=== PATIENT | female | born 1970 | race Caucasian/White ===

== ENCOUNTER 2020-01-14 07:20 | Inpatient (IN) | payer OTHER ==
[2020-01-14 08:16] VITALS: BMI 27.1
[2020-01-14] MEDS ORDERED: CITRIC ACID/SODIUM CITRATE 30 ML UNIT-DOSE CUP PO ONE (08:27)
[2020-01-14] MEDS ORDERED: ELECTROLYTE-148 SOLN 1,000 ML IV SCH (08:30)
[2020-01-14] MEDS ORDERED: morphine SULFATE/PF 0.5 MG/ML (2cc Syringe - QUVA) ONE (09:21)
--- NOTE | 2020-01-14 09:25 | HP ---
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: Alzheimer's, CVA, Dementia, Migraine, Multiple Sclerosis, Peripheral Neuropathy, Parkinson's, Seizure, Syncope, TIA, Vertigo, Other Hepatobiliary: Yes: Hepatitis B ...: Yes (39w1d gestation conceived with IVF.) ...: 3 (Recurrent loss) ...Para: 0 Endocrine: Yes: Other (Gestational diabetes- diet controlled) - Smoking History Smoking history: Never smoked Have you smoked in the past 12 months: No - Alcohol/Substance Use Hx Alcohol Use: No - Social History History of Recent Travel: No Home Medications - Allergies Allergies/Adverse Reactions: Allergies Allergy/AdvReac Type Severity Reaction Status Date / Time No Known Allergies Allergy Verified 01/14/20 08:15 - Home Medications Home Medications: Ambulatory Orders Aspirin 81 mg PO DAILY 01/14/20 Levothyroxine [Synthroid -] 25 mcg PO DAILY 01/14/20 No115/Iron/Folic Acid [ 19 Chewable Tablet] 1 each PO DAILY 01/14/20 Physical Examination Vital Signs: Vital Signs Temperature 98.9 F 01/14/20 08:03 Pulse Rate 90 01/14/20 08:03 Respiratory Rate 20 01/14/20 08:03 Blood Pressure 123/78 01/14/20 08:03 O2 Sat by Pulse Oximetry (%) Constitutional: Yes: Well Nourished, No Distress, Calm Eyes: Yes: Conjunctiva Clear, EOM Intact HENT: Yes: Atraumatic, Normocephalic Neck: Yes: Supple Cardiovascular: Yes: Regular Rate and Rhythm Respiratory: Yes: WNL, Regular Gastrointestinal: Yes: Other (gravid uterus) Renal/: Yes: WNL Musculoskeletal: Yes: WNL Extremities: Yes: WNL Edema: No Problem List - Problems (1) Advanced maternal age (AMA), 40 years or greater Code(s): LBF9130 -
[2020-01-14] MEDS ORDERED: ceFAZolin 2 GRAM PREMIX BAG IVPB ONE (10:15)
[2020-01-14] MEDS ORDERED: EPHEDRINE SULFATE/0.9% NACL/PF 50 MG/10 ML SYRINGE NR ONE (10:37)
[2020-01-14] MEDS ORDERED: LIDOCAINE HCL 1%, 10 MG/ML (20ML VIAL) ONE (10:55)
[2020-01-14] MEDS ORDERED: LIDOCAINE HCL 1%, 10 MG/ML (20ML VIAL) NR ONE (11:00)
[2020-01-14] MEDS ORDERED: morphine SULFATE/PF 0.5 MG/ML (2cc Syringe - QUVA) EP ONE (11:02)
[2020-01-14] MEDS ORDERED: ONDANSETRON 4 MG/2 ML VIAL IVPUSH PRN (11:07)
[2020-01-14] MEDS ORDERED: METHYLERGONOVINE MALEATE 0.2 MG/1 ML AMP IM PRN (11:42)
[2020-01-14 11:44] LABS: CORD HCO3 23.4 mmHg (20-29); CORD PCO2 52.5 mmHg (30-78); CORD pH 7.267 (7.14-7.44)
[2020-01-14 11:47] LABS: CORD HCO3 22.9 mmHg (20-29); CORD PCO2 49.8 mmHg (30-78); CORD pH 7.281 (7.14-7.44)
[2020-01-14 11:50] VITALS: RESP 14; O2SAT 100
[2020-01-14] MEDS ORDERED: ONDANSETRON 4 MG/2 ML VIAL ONE (12:09)
[2020-01-14] MEDS ORDERED: OXYTOCIN 10 UNITS/ML VIAL ONE (12:37)
[2020-01-14] MEDS ORDERED: MORPHINE SULFATE 2 MG/ML VIAL IVPUSH PRN (15:58)
[2020-01-14] MEDS: HEPARIN NA (PORCINE) 5,000 UNITS/ML 1ML VIAL SQ SCH (21:56)
[2020-01-15] MEDS: ACETAMINOPHEN 325 MG TABLET (FP) PO PRN ×4 (04:45→21:31)
[2020-01-15] MEDS: SIMETHICONE 80 MG TAB.CHEW (FP) PO PRN ×4 (04:45→21:32)
[2020-01-15] MEDS: IBUPROFEN 600 MG TABLET (FP) PO PRN ×4 (04:46→21:31)
[2020-01-15 09:07] LABS: BASO % 0.6 % (0-2.0); EOS % 0.5 % (0-4.5); HEMATOCRIT 33.3 % (32.4-45.2); LYMPH % 11.3 % (8-40); MCH 31.9 pg (25.7-33.7); MCHC 33.1 g/dl (32.0-36.0); MEAN CELL VOLUME 96.6 fl (80-96); MEAN PLT VOLUME 7.1 fl (7.5-11.1); MONO % 6.5 % (3.8-10.2); NEUT % 81.1 % (42.8-82.8); PLATELET COUNT 320 K/MM3 (134-434); RBC 3.45 M/mm3 (3.60-5.2); RDW 13.8 % (11.6-15.6); WHITE BLOOD COUNT 20.4 K/mm3 (4.0-10.0)
[2020-01-15 09:48] LABS: ANISOCYTOSIS 0; MACROCYTOSIS 0; PLATELET ESTIMATE NORMAL
[2020-01-15] MEDS: HEPARIN NA (PORCINE) 5,000 UNITS/ML 1ML VIAL SQ SCH ×2 (09:55→21:32)
--- NOTE | 2020-01-15 11:07 | PN ---
Post Progress Note - Subjective Subjective: Patient seen this morning. Denies flatus at this time. Lochia is reported as "normal". She was OOB and sitting in the chair. Has ambulated and has attempted breast feeding. Desires circumcision. Post Day: 1 Type of Delivery: Primary C/S Vital Signs: Vital Signs Temperature 98.6 F 01/15/20 10:00 Pulse Rate 82 01/15/20 10:00 Respiratory Rate 20 01/15/20 10:00 Blood Pressure 113/74 01/15/20 10:00 O2 Sat by Pulse Oximetry (%) 99 01/14/20 12:40 Breast Exam: Yes: Soft Uterus: Yes: Fundus @ umbilicus Incision: Yes: Dressing dry and intact (Removed dressing this morning. Incision intact without drainage.), Other Abdomen/GI: Yes: Abdominal Distention, Tolerating PO Lochia, amount: Small Extremities: Yes: Calves non-tender Activity: Ambulating - Labs Labs: CBC WBC 20.4 K/mm3 (4.0-10.0) H 01/15/20 08:50 RBC 3.45 M/mm3 (3.60-5.2) L 01/15/20 08:50 Hgb 11.0 GM/dL (10.7-15.3) 01/15/20 08:50 Hct 33.3 % (32.4-45.2) 01/15/20 08:50 MCV 96.6 fl (80-96) H 01/15/20 08:50 MCH 31.9 pg (25.7-33.7) 01/15/20 08:50 MCHC 33.1 g/dl (32.0-36.0) 01/15/20 08:50 RDW 13.8 % (11.6-15.6) 01/15/20 08:50 Plt Count 320 K/MM3 (134-434) 01/15/20 08:50 MPV 7.1 fl (7.5-11.1) L 01/15/20 08:50 Absolute Neuts (auto) 16.6 K/mm3 (1.5-8.0) H 01/15/20 08:50 Neutrophils % 81.1 % (42.8-82.8) 01/15/20 08:50 Neutrophils % (Manual) 66.7 % (42.8-82.8) 01/15/20 08:50 Band Neutrophils % 13.1 % 01/15/20 08:50 Lymphocytes % 11.3 % (8-40) D 01/15/20 08:50 Lymphocytes % (Manual) 11.1 % (8-40) D 01/15/20 08:50 Monocytes % 6.5 % (3.8-10.2) 01/15/20 08:50 Monocytes % (Manual) 7 % (3.8-10.2) 01/15/20 08:50 Eosinophils % 0.5 % (0-4.5) 01/15/20 08:50 Eosinophils % (Manual) 0.0 % (0-4.5) D 01/15/20 08:50 Basophils % 0.6 % (0-2.0) 01/15/20 08:50 Basophils % (Manual) 0.0 % (0-2.0) 01/15/20 08:50 Myelocytes % (Man) 1 % (0-2) D 01/15/20 08:50 Promyelocytes % (Man) 0 % (0-2) 01/15/20 08:50 Blast Cells % (Manual) 0 % (0-0) 01/15/20 08:50 Nucleated RBC % 0 % (0-0) 01/15/20 08:50 Metamyelocytes 1 % (0-2) D 01/15/20 08:50 Hypochromia 0 01/15/20 08:50 Platelet Estimate Normal 01/15/20 08:50 Polychromasia 0 01/15/20 08:50 Poikilocytosis 0 01/15/20 08:50 Anisocytosis 0 01/15/20 08:50 Microcytosis 0 01/15/20 08:50 Macrocytosis 0 01/15/20 08:50 Problem List - Problems (1) Advanced maternal age (AMA), 40 years or greater Assessment/Plan: Doing well. No issues. Code(s): ETY0010 - (2) delivery delivered Assessment/Plan: Normal recuperative process. No flatus at this time. WBC count is high at 20%. She is afebrile abdomen in non-tender and uterus is appropriately tender for POD#1. Plan to follow repeat CBC tomorrow and vital signs Problems reviewed: Yes Code(s): O82 - ENCOUNTER FOR DELIVERY WITHOUT INDICATION (3) Gestational diabetes mellitus Assessment/Plan: Now delivered. No further fingersticks required. Plan to recheck 2 hour GTT. New born was LGA at 4200gms (9lb5 oz). He is doing well. Problems reviewed: Yes Code(s): O24.419 - GESTATIONAL DIABETES MELLITUS IN , UNSP CONTROL Qualifiers: Gestational diabetes mellitus control: diet-controlled Trimester: unspecified trimester Qualified Code(s): O24.410 - Gestational diabetes mellitus in , diet controlled Assessment/Plan POD#1 from primary cesaran secondary to suspected Macrosomia, AMA. No flatus yet but tolerating PO intake. Desires circumcision for the , but not yet cleared for the procedure. 1. Advance diet as tolerated. 2. Continue routine post-operative care. 3. Repeat CBC to follow WBC 4. Obtained consent for circ. Will perform when cleared by pediatricians.
[2020-01-15] MEDS ORDERED: BISACODYL 10 MG SUPP.RECT RC PRN (11:42)
[2020-01-16 09:04] LABS: BASO % 0.4 % (0-2.0); EOS % 0.6 % (0-4.5); HEMATOCRIT 28.8 % (32.4-45.2); HEMOGLOBIN 9.7 GM/dL (10.7-15.3); LYMPH % 11.6 % (8-40); MCH 32.2 pg (25.7-33.7); MCHC 33.9 g/dl (32.0-36.0); MEAN CELL VOLUME 95.2 fl (80-96); MEAN PLT VOLUME 7.2 fl (7.5-11.1); MONO % 7.1 % (3.8-10.2); NEUT % 80.3 % (42.8-82.8); PLATELET COUNT 340 K/MM3 (134-434); RBC 3.02 M/mm3 (3.60-5.2); RDW 13.3 % (11.6-15.6); WHITE BLOOD COUNT 16.3 K/mm3 (4.0-10.0)
[2020-01-16] MEDS: HEPARIN NA (PORCINE) 5,000 UNITS/ML 1ML VIAL SQ SCH ×2 (09:46→22:05)
[2020-01-16] MEDS: ACETAMINOPHEN 325 MG TABLET (FP) PO PRN (11:53)
[2020-01-16] MEDS: IBUPROFEN 600 MG TABLET (FP) PO PRN (11:54)
--- NOTE | 2020-01-16 12:06 | OP ---
DATE OF OPERATION: 01/14/2020 PREOPERATIVE DIAGNOSES: 1. Suspected macrosomia at 39 weeks and 1 day. 2. Advanced maternal age of [age] years old. 3. Gestational diabetes type A1. 4. History of recurrent loss. POSTOPERATIVE DIAGNOSES: 1. Suspected macrosomia at 39 weeks and 1 day. 2. Advanced maternal age of [age] years old. 3. Gestational diabetes type A1. 4. History of recurrent loss. 5. Delivery of a viable male . Procedure: Primary via pfannenstiel skin incision FINDINGS: Viable male infant noted to be vigorous upon delivery. scores of 9 at one minute and 9 at five minutes. Normal-appearing uterus, fallopian tubes and ovaries bilaterally. The patient was taken into the operating room, and spinal anesthesia was established by the anesthesiologist. Prior to entry into the operating room, she was consented for the above-stated operative procedure, which is a primary delivery. She was then placed in the dorsal supine position with a leftward tilt. She was prepped and draped in the usual sterile fashion. Intraurethral catheter was placed and was noted to be draining urine. The patient was draped for the above procedure. A Pfannenstiel skin incision was made approximately 2 fingerbreadths above the symphysis pubis. This incision was carried down with the scalpel to the level of the fascia. The fascia was then nicked in the midline, and this incision was extended bilaterally using Devries scissors. The inferior aspect of the fascial incision was grasped with Hima clamps x2 tented up and dissected off of the rectus muscle. The superior aspect of the fascial incision was grasped with Hima clamps x2 and dissected off the rectus muscle. The rectus muscle was then divided in the midline to provide entry into the abdominal cavity. The parietal peritoneum was identified and grasped with pickups and entered sharply with Metzenbaum scissors. This incision was then extended superiorly and inferiorly to provide access to the intraabdominal contents. The uterus was gravid and explored and appeared without any abnormalities. The lower uterine segment was identified, and the vesicouterine peritoneum was grasped with pickups and entered sharply and dissected off of the lower uterine segment digitally creating a bladder flap. The bladder blade was then placed to protect the bladder. Using T-clamps, the lower uterine segment was grasped with 2 parallel clamps, and a transverse incision was made in the lower uterine segment between the 2 T- clamps. This incision was carried in a semilunar fashion using bandage scissors. The membranes were intact at this point and were ruptured with an Allis clamp. Clear amniotic fluid was noted. The infant was delivered from a cephalic presentation. Upon delivery of the head, the nose and the mouth were bulb suctioned, and then the rest of the body was delivered atraumatically without any complications. The umbilical cord was clamped doubly and cut, and the was handed off to the awaiting pediatricians and was noted to be crying. A male infant was delivered. At this point, the cord gases were sent. The placenta was expressed out of the uterus intact and handed off as a specimen. The uterus was exteriorized, and the internal cavity was cleaned with a dry lap sponge to remove all of the debris. The edges of the uterus were grasped with T-clamps, and using a 0 Vicryl suture, the uterus was closed in a running locked stitch. A second suture of 0 Vicryl was used to imbricate the first layer. Excellent hemostasis was noted at this point. The uterus was replaced into the abdominal cavity. The abdominal gutters were cleared of debris bilaterally using a moist laparotomy sponge. Attention was turned to the rectus musculature and the parietal peritoneum, which had been grasped and brought to the midline. Using a 2-0 Vicryl suture, the rectus musculature and parietal peritoneum were closed in a running stitch. At this time, attention was turned to the fascia, which was closed in 2 halves using 0 Vicryl suture in a running stitch from the right apex to the midline and then the left apex to the midline. The subcutaneous layer was irrigated and checked for bleeders. Excellent hemostasis was noted. The subcutaneous tissue was reapproximated using a 2-0 plain gut suture, and the skin was closed with a 3-0 Vicryl in a subcuticular fashion. There were no complications with the procedure. All instruments, needles, and lap sponges were accounted for x3. Prior to the start of the procedure, a timeout was taken to appropriately identify the patient and the procedure. The urine output noted at the end of the case was 250 mL of clear yellow urine in the Rsusell bag. A sterile dressing was placed on the incision, and the patient was safely moved to the recovery room in stable condition. LEAH HAIRSTON/[id number] MTDMatthias
--- NOTE | 2020-01-16 18:27 | PN ---
Progress Note, Physician Chief Complaint: No complaints. Ambulating, tolerating regular diet and voiding without difficulty. - Current Medication List Current Medications: Active Medications Acetaminophen (Tylenol -) 650 mg PO Q4H PRN PRN Reason: PAIN LEVEL 1 - 3 Last Admin: 01/16/20 11:53 Dose: 650 mg Documented by: Bisacodyl (Dulcolax Suppository -) 10 mg RC PRN PRN PRN Reason: CONSTIPATION Ferrous Sulfate (Feosol -) 325 mg PO BID BREA Heparin Sodium (Porcine) (Heparin -) 5,000 unit SQ BID BREA Last Admin: 01/16/20 09:46 Dose: 5,000 unit Documented by: Ibuprofen (Motrin -) 600 mg PO Q4H PRN PRN Reason: PAIN LEVEL 1 - 3 Last Admin: 01/16/20 11:54 Dose: 600 mg Documented by: Methylergonovine Maleate (Methergine Injection -) 0.2 mg IM Q4H PRN PRN Reason: Excessive Bleeding (L&D) Ondansetron HCl (Zofran Injection) 4 mg IVPUSH Q4H PRN PRN Reason: NAUSEA Last Admin: 01/14/20 12:30 Dose: 4 mg Documented by: Simethicone (Mylicon -) 80 mg PO Q4H PRN PRN Reason: GAS Last Admin: 01/15/20 21:32 Dose: 80 mg Documented by: - Objective Vital Signs: Vital Signs Temperature 98.6 F 01/16/20 08:00 Pulse Rate 83 01/16/20 08:00 Respiratory Rate 18 01/16/20 08:00 Blood Pressure 119/72 01/16/20 08:00 O2 Sat by Pulse Oximetry (%) 99 01/14/20 12:40 Constitutional: Yes: No Distress, Calm Eyes: Yes: Conjunctiva Clear Gastrointestinal: Yes: Soft Extremities: Yes: WNL Edema: No Wound/Incision: Yes: Clean/Dry Labs: CBC, BMP 01/16/20 08:40 Problem List - Problems (1) Advanced maternal age (AMA), 40 years or greater Code(s): [id number] - (2) delivery delivered Code(s): O82 - ENCOUNTER FOR DELIVERY WITHOUT INDICATION (3) Gestational diabetes mellitus Code(s): O24.419 - GESTATIONAL DIABETES MELLITUS IN , UNSP CONTROL Qualifiers: Gestational diabetes mellitus control: diet-controlled Trimester: unspecified trimester Qualified Code(s): O24.410 - Gestational diabetes mellitus in , diet controlled Assessment/Plan POD#2 ambulating well and tolerating diet. Voiding without difficulty. Uterus if firm. Plan for circ this evening. Plan for discharge home tomorrow. She will follow up with me in the office in 2 weeks for incision check.
[2020-01-16] MEDS: FERROUS SO4 325 MG TABLET (FP) PO SCH (22:04)
[2020-01-17] MEDS: ACETAMINOPHEN 325 MG TABLET (FP) PO PRN (05:51)
[2020-01-17] MEDS: IBUPROFEN 600 MG TABLET (FP) PO PRN (05:52)
[2020-01-17] MEDS: SIMETHICONE 80 MG TAB.CHEW (FP) PO PRN (05:56)
[2020-01-17 09:09] VITALS: BP 118/73; PULSE 80; TEMP 98.3
[2020-01-17] MEDS: HEPARIN NA (PORCINE) 5,000 UNITS/ML 1ML VIAL SQ SCH (09:30)
[2020-01-17] MEDS: FERROUS SO4 325 MG TABLET (FP) PO SCH (09:30)
--- NOTE | 2020-01-22 11:19 | PATH ---
Surgical Pathology Report Patient Name: GLORIA SALEEM Med. Rec. #: [id number] /Age/Gender: 1970 (Age: 49) / F Account: [id number] Location: [facility] OBS/MANAGER ED Taken: 01/14/2020 Received: 01/14/2020 Reported: 01/22/2020 Physicians: Letty Mckeon M.D. Specimen(s) Received PLACENTA Clinical History Advanced maternal age, GDM, suspected macrosomia Final Diagnosis PLACENTA, SECTION: 599 G THIRD TRIMESTER PLACENTA WITH TRIVASCULAR UMBILICAL CORD AND UNREMARKABLE PLACENTAL MEMBRANES. Electronically Signed Edith Cline M.D. Gross Description The specimen is received fresh labeled placenta and is a 599 gram, 19.0 x 15.5 x 3.5 cm. placenta with attached membranes and umbilical cord. The attached membranes are smith, translucent with focal opacities and insert marginally. The umbilical cord measures 43 cm. in length and averages 0.9 cm. in diameter. The cord inserts eccentrically, 4.5 cm. to the nearest margin. No true knots or strictures are identified. Cut surface of the umbilical cord reveals 3 vessels. The surface is brsuh blue with moderate fibrin deposition and appropriate caliber vessels. The maternal surface is red-brown with focal defects. Sectioning reveals red-brown, spongy parenchyma. No lesions are identified. [employer] Access Developer sections are submitted in three cassettes as follows: 1- membrane rolls and umbilical cord; 2-3- full thickness sections of placenta. 01/17/2020 [facility]01/17/2020
--- NOTE | 2020-02-20 12:08 | DS ---
DATE OF ADMISSION: 01/14/2020 DATE OF DISCHARGE: 01/17/2020 The patient is a 49-year-old who was admitted at 39 weeks of gestation for a primary delivery secondary to suspected macrosomia. She started her care at [facility] and the medical history was significant for: 1. Recurrent loss. 2. Advanced maternal age. 3. IVF conception She otherwise did not have any preexisting medical conditions. She underwent IVF and conceived her . She was managed throughout the and was diagnosed with gestational diabetes that was managed with diet only. She did not require any medication as her home glucose logs were within normal limits. At the time of admission the patient had been counseled regarding the estimated weight of approximately 4000 g. She was informed of the risks, benefits and alternatives regarding mode of delivery and requested a primary section. She underwent an uneventful primary section and delivered a male . 's at the time of delivery were 9 and 9. There were no complications with the procedure. Please refer to the operative note for details of the delivery. Her postoperative course was uncomplicated. She was afebrile. She tolerated a regular diet prior to the discharge. She was voiding and ambulating without any difficulty. She was discharged home on postoperative day number 3. At that time she was afebrile, tolerating regular diet and ambulating without difficulty. She was given a followup appointment in 2 weeks for an incision check with Dr. 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 The baby underwent circumcision prior to discharge. MD YOVANNY GORDON/[id number] MTDD
== END 2020-01-17 12:30 | disposition home or self-care (01) | DRG 540 ==
LOC: EDBD → JLDR 07:20 → J3W 13:00
PROVIDERS: ADMIT Obstetrics & Gynecology Maternal & Fetal Medicine; ATTEND Obstetrics & Gynecology Maternal & Fetal Medicine
PROC: 10D00Z1 Extraction of Products of Conception, Low, Open Approach (ICD-10-PCS; principal; 2020-01-14 09:30)
DX: O82 Encounter for cesarean delivery without indication (principal); O24.420 Gestational diabetes mellitus in childbirth, diet controlled; O36.63X0 Maternal care for excessive fetal growth, third trimester, not applicable or unspecified; Z3A.39 39 weeks gestation of pregnancy; Z37.0 Single live birth; Z79.82 Long term (current) use of aspirin; Z87.59 Personal history of other complications of pregnancy, childbirth and the puerperium
CPT/HCPCS: 36415; 36600; 82803; 85025; 88307-TC; 94760; J1644